=== PATIENT | male | born 1975 ===

== ENCOUNTER 2016-10-27 13:31 | Inpatient (IN) | payer OTHER ==
--- NOTE | 2016-10-27 14:51 | RAD ---
HISTORY: SOB COMPARISON: None available. TECHNIQUE: Chest PA and lateral FINDINGS: Examination limited by habitus and hypoinflation. LUNGS: Mild biapical pleural thickening. No focal consolidation. Probable punctate left upper lobe calcified granulomas. Please note that chest x-ray has limited sensitivity for the detection of pulmonary masses. PLEURA: No significant pleural effusion identified. No definite pneumothorax . CARDIOVASCULAR: The cardiomediastinal silhouette appears within normal limits of size. OSSEOUS STRUCTURES: No acute osseous abnormality identified. VISUALIZED UPPER ABDOMEN: Unremarkable. OTHER FINDINGS: None. IMPRESSION: No acute findings. See above.
[2016-10-27 14:57] LABS: BASO # 0.1 K/uL (0.0-0.2); EOS # 0.2 K/uL (0.0-0.7); EOS % 1.8 % (0.0-4.0); HEMATOCRIT 46.6 % (35.0-51.0); LYMPH # 2.6 K/uL (1.0-4.3); LYMPH % 30.3 % (20.0-40.0); MEAN CELL VOLUME 83.9 fL (80.0-94.0); MEAN CORPUSCULAR HEMOGLOBIN 27.3 pg (27.0-31.0); MEAN CORPUSCULAR HGB CONC 32.6 g/dL (33.0-37.0); MEAN PLATELET VOLUME 8.7 fL (7.2-11.7); MONO # 0.5 K/uL (0.0-0.8); MONO % 5.7 % (0.0-10.0); RED CELL DISTRIBUTION WIDTH 14.4 % (11.5-14.5); WHITE BLOOD COUNT 8.7 K/uL (4.8-10.8)
[2016-10-27 15:10] LABS: ALB/GLOB RATIO 1.2 (1.0-2.1); ALKALINE PHOSPHATASE 108 U/L (38-126); ALT/SGPT 81 U/L (21-72); AST/SGOT 47 U/L (17-59); BILIRUBIN,TOTAL 0.5 mg/dL (0.2-1.3); BLOOD UREA NITROGEN 11 mg/dL (9-20); CALCIUM 9.4 mg/dl (8.6-10.4); CARBON DIOXIDE 24 mmol/L (22-30); CHLORIDE 102 mmol/L (98-107); GFR AFRICAN-AMERICAN > 60; GLUCOSE,RANDOM 85 mg/dL (75-110); POTASSIUM 4.1 mmol/L (3.6-5.2); SODIUM 137 mmol/L (132-148)
[2016-10-27 15:11] LABS: RBC URINE 2 /hpf (0-3); URINE BILIRUBIN NEGATIVE (NEGATIVE); URINE BLOOD NEGATIVE (NEGATIVE); URINE COLOR Yellow (YELLOW); URINE GLUCOSE (UA) NORMAL (Normal); URINE KETONE NEGATIVE (NEGATIVE); URINE LEUKOCYTE ESTERASE TRACE Leu/uL (Negative); URINE PROTEIN NEGATIVE (NEGATIVE); URINE UROBILINOGEN NORMAL mg/dL (0.2-1.0); WBC URINE 15 /hpf (0-5)
--- NOTE | 2016-10-27 15:42 | C.PDOC ---
History Of Present Illness Patient is a 41 y/o male presents to the ED for evaluation of worsening dyspnea on exertion for the past week. Also reports increased leg edema for the last month. Reports weight gain in the last 7 years due to dietary indiscretion. Otherwise, denies any chest pain, palpitations, cough, sputum, nausea, vomiting , weakness, numbness, or any other associated symptoms at this time. Time Seen by Provider: 10/27/16 14:02 Chief Complaint (Nursing): Chest Pain History Per: Patient History/Exam Limitations: no limitations Onset/Duration Of Symptoms: Days (1 week) Current Symptoms Are (Timing): Still Present Severity: None Pain Scale Rating Of: 0 Associated Symptoms: Dyspnea. denies: Nausea, Diaphoresis, Syncope Modifying Factors: None Exacerbating Factors: Exertion Alleviating Factors: None Recent travel outside of the [place]: No Additional History Per: Patient Past Medical History Reviewed: Historical Data, Nursing Documentation, Vital Signs Vital Signs: Last Vital Signs Temp 97.9 F 10/27/16 13:43 Pulse 82 10/27/16 15:48 Resp 18 10/27/16 15:48 BP 148/70 10/27/16 15:58 Pulse Ox 99 10/27/16 15:48 - Medical History PMH: Gall Bladder Disease, Pancreatitis Surgical History: Cholecystectomy Family History: States: Unknown Family Hx - Social History Hx Alcohol Use: No Hx Substance Use: No - Immunization History Hx Tetanus Toxoid Vaccination: Yes Hx Influenza Vaccination: No Hx Pneumococcal Vaccination: No Review Of Systems Except As Marked, All Systems Reviewed And Found Negative. Constitutional: Positive for: Other (snoring, sleep apnea). Negative for: Fever , Chills, Sweats, Weight loss Cardiovascular: Positive for: Edema (bilateral leg). Negative for: Chest Pain, Palpitations, Light Headedness Respiratory: Positive for: SOB with Excertion. Negative for: Cough, Hemoptysis , Pleuritic Pain, Sputum, Wheezing Gastrointestinal: Negative for: Nausea, Vomiting, Abdominal Pain Musculoskeletal: Negative for: Neck Pain, Back Pain Skin: Negative for: Rash, Bruising Neurological: Negative for: Headache, Dizziness Physical Exam - Physical Exam Appears: Non-toxic, No Acute Distress, Other (morbidly obese) Skin: Normal Color, Warm, Dry Head: Atraumatic, Normacephalic Eye(s): bilateral: Normal Inspection, EOMI Oral Mucosa: Moist Throat: No Erythema, Other (small oropharynx) Neck: Normal ROM, Supple Chest: Symmetrical, No Tenderness Cardiovascular: Rhythm Regular, No Murmur Respiratory: Normal Breath Sounds, No Rales, No Rhonchi, No Wheezing Gastrointestinal/Abdominal: Soft, No Tenderness, Other (globus abdomen) Extremity: Normal ROM, No Tenderness, Pedal Edema (pitting edema bilaterally, up to knees), Capillary Refill (<2 sec.), No Deformity Extremity: Bilateral: Atraumatic, Normal ROM Neurological/Psych: Oriented x3, Normal Speech, Normal Cognition, Other (anxious ) ED Course And Treatment - Laboratory Results Result Diagrams: 10/27/16 14:51 10/27/16 14:51 Lab Interpretation: Normal (trop/bnp/d-dimer neg.) ECG: Interpreted By Me ECG Rhythm: Sinus Rhythm ECG Interpretation: Normal Rate From EC O2 Sat by Pulse Oximetry: 97 Pulse Ox Interpretation: Normal - Radiology CXR: Interpreted by Me CXR Interpretation: Yes: No Acute Disease, Other (? mild CHF) Progress Note: yodit alvarez 42 IV Reevaluation Time: 15:42 Reassessment Condition: Improved (mild improvement, minimal urine output) - Physician Consult Information Outcome Of Conversation: 1540: d/w Dr. Alfaro- Hospitalist [employer]- ok to Tele Obs, agrees with diuresis, consider cardiac echo. CPAP overnight for presumed TACHO Medical Decision Making Medical Decision Making: worstening mobid obesity, leg edema, TACHO, now CAMPOS ? related to leg edema or cardiac etiology Despite huge leg edema low susp of DVT/PE with neg d-dimer Disposition Doctor Will See Patient In The: Hospital Counseled Patient/Family Regarding: Studies Performed, Diagnosis - Disposition Disposition: HOSPITALIZED Disposition Time: 15:44 Condition: GOOD - Clinical Impression Clinical Impression: Dyspnea on exertion, Leg edema, Sleep apnea in adult - Scribe Statement The provider has reviewed the documentation as recorded by the Hola Ha All medical record entries made by the Elizabetibsatinder were at my direction and personally dictated by me. I have reviewed the chart and agree that the record accurately reflects my personal performance of the history, physical exam, medical decision making, and the department course for this patient. I have also personally directed, reviewed, and agree with the discharge instructions and disposition.
[2016-10-27 18:53] VITALS: BMI 46.8
[2016-10-27 20:09] VITALS: RESP 20
--- NOTE | 2016-10-27 20:56 | CP.PCM.HP ---
<Josh Jha - Last Filed: 10/27/16 20:41> History of Present Illness - History of Present Illness History of Present Illness: PGY-[address] H&P [address] Martha Alfaro This is a 41 year old male with PMHx pancreatitis and cholelithiasis s/p cholecystectomy who presented to the ED with complaint of dyspnea and left sided chest pain. Patient also complaining of low back pain and bilateral leg swelling. The dyspnea and chest pain started 3 days ago and are experienced when patient is either standing or ambulating. Patient also gets diaphoretic and experiences facial flushing. Symptoms improve with rest. He can only walk for half a block at a time due to severe SOB and chest pain. Patient decided to come for evaluation after he could no longer tolerate his symptoms. Patient intermittently wakes up at night due to difficulty breathing, but he cannot quantify how many times this happens to him per week. Patient has started experiencing intermittent dry cough since last evening. Patient actually did not notice leg swelling until it was pointed out to him by ED staff. PMHx: pancreatitis in 2008, cholilithiasis PSHx: cholecystectomy, L foot heel surgery Allergy: anaphylasis to unknown allergen (was not in a hospital when he got his reaction) Social Hx: former smoker- 3-6 cigarettes per week, quit 12 years ago. Former social drinker, quit when diagnosed with pancreatitis. Denies drug use. Family Hx: mother- stroke Medications: Epipen, patient keeps on hand because he does not know what caused his reaction. PMD: none Present on Admission - Present on Admission Any Indicators Present on Admission: No Review of Systems - Constitutional Constitutional: absent: Chills, Fever, Headache, Weakness - EENT Eyes: absent: Change in Vision Ears: absent: Decreased Hearing Nose/Mouth/Throat: absent: Nasal Congestion - Cardiovascular Cardiovascular: Chest Pain with Activity, Dyspnea on Exertion. absent: Chest Pain at Rest - Respiratory Respiratory: Cough (intermittent dry cough), Dyspnea on Exertion. absent: Wheezing - Gastrointestinal Gastrointestinal: absent: Abdominal Pain, Constipation, Diarrhea, Nausea, Vomiting - Musculoskeletal Musculoskeletal: Back Pain - Integumentary Integumentary: absent: Rash - Neurological Neurological: absent: Dizziness, Numbness, Headaches, Tingling, Weakness Past Patient History - Past Social History Smoking Status: Never Smoked - GASTROINTESTINAL Hx Gall Bladder Disease: Yes Hx Pancreatitis: Yes - PSYCHIATRIC Hx Substance Use: No - SURGICAL HISTORY Hx Cholecystectomy: Yes - ANESTHESIA Hx Anesthesia: Yes Hx Anesthesia Reactions: No Meds Allergies/Adverse Reactions: Allergies Allergy/AdvReac Type Severity Reaction Status Date / Time UNKNOW ALLERGEN Allergy Severe ANAPHYLAXIS Uncoded 10/27/16 13:47 Physical Exam - Constitutional Appears: No Acute Distress - Head Exam Head Exam: ATRAUMATIC, NORMAL INSPECTION, NORMOCEPHALIC - Eye Exam Eye Exam: EOMI, PERRL - ENT Exam ENT Exam: Mucous Membranes Moist - Respiratory Exam Respiratory Exam: Decreased Breath Sounds (secondary to body habitus), Clear to Auscultation Bilateral. absent: Rales, Rhonchi, Wheezes - Cardiovascular Exam Cardiovascular Exam: REGULAR RHYTHM, +S1, +S2 - GI/Abdominal Exam GI & Abdominal Exam: Hypoactive Bowel Sounds, Soft. absent: Tenderness - Extremities Exam Extremities exam: Positive for: pedal edema (very trace edema likely baseline due to body habitus), pedal pulses present. Negative for: tenderness - Neurological Exam Neurological exam: Alert, CN II-XII Intact, Oriented x3 - Skin Skin Exam: Dry, Intact, Normal Color, Warm Results - Vital Signs Recent Vital Signs: Last Vital Signs Temp 98.2 F 10/27/16 20:08 Pulse 87 10/27/16 20:08 Resp 20 10/27/16 20:08 BP 142/82 10/27/16 20:08 Pulse Ox 95 10/27/16 20:08 - Labs Result Diagrams: 10/27/16 14:51 10/27/16 14:51 Assessment & Plan - Assessment and Plan (Free Text) Plan: Chest Pain First troponin negative. F/u NOVA x2 ASA [address] Hernandez (cardiology) consulted. Help appreciated. F/u Echo Lipid Panel, Hemoglobin A1C, TSH, free T4 Dyspnea Patient resting comfortably on O2 via NC as needed Prophylactic Measure Heparin 5000 Units SC Q8 Heart Healthy Diet AM Labs Case DW Dr. Dominic Jha - Date & Time Date: 10/27/16 Time: 17:00 <Johny Alfaro - Last Filed: 10/28/16 10:14> Results - Vital Signs Recent Vital Signs: Last Vital Signs Temp 97.2 F L 10/28/16 07:11 Pulse 77 10/28/16 08:11 Resp 20 10/28/16 07:11 BP 118/79 10/28/16 07:11 Pulse Ox 96 10/28/16 07:11 - Labs Result Diagrams: 10/28/16 06:30 10/28/16 06:30 Attending/Attestation - Attestation I have personally seen and examined this patient.: Yes I have fully participated in the care of the patient.: Yes I have reviewed all pertinent clinical information: Yes Notes (Text): 10/28/16 10:13 Patient was seen and examined at bedside with the resident Admit the patient for chest pain on exertion and we will request cardiology evaluation I discussed the plan of care with the resident and agree with the assessment and plan documented.
[2016-10-28 06:39] LABS: BASO # 0.1 K/uL (0.0-0.2); BASO % 0.9 % (0.0-2.0); EOS # 0.2 K/uL (0.0-0.7); EOS % 2.7 % (0.0-4.0); HEMATOCRIT 42.6 % (35.0-51.0); LYMPH # 2.3 K/uL (1.0-4.3); LYMPH % 30.3 % (20.0-40.0); MEAN CELL VOLUME 83.5 fL (80.0-94.0); MEAN CORPUSCULAR HEMOGLOBIN 27.9 pg (27.0-31.0); MEAN CORPUSCULAR HGB CONC 33.5 g/dL (33.0-37.0); MEAN PLATELET VOLUME 8.3 fL (7.2-11.7); MONO # 0.4 K/uL (0.0-0.8); MONO % 5.7 % (0.0-10.0); RED CELL DISTRIBUTION WIDTH 14.5 % (11.5-14.5); WHITE BLOOD COUNT 7.7 K/uL (4.8-10.8)
[2016-10-28 06:52] LABS: ALB/GLOB RATIO 1.2 (1.0-2.1); ALKALINE PHOSPHATASE 95 U/L (38-126); ALT/SGPT 74 U/L (21-72); AST/SGOT 46 U/L (17-59); BILIRUBIN,TOTAL 0.5 mg/dL (0.2-1.3); BLOOD UREA NITROGEN 13 mg/dL (9-20); CALCIUM 8.9 mg/dl (8.6-10.4); CARBON DIOXIDE 27 mmol/L (22-30); CHLORIDE 101 mmol/L (98-107); CHOLESTEROL 133 mg/dL (0-199); GFR AFRICAN-AMERICAN > 60; GLUCOSE,RANDOM 92 mg/dL (75-110); POTASSIUM 3.6 mmol/L (3.6-5.2); SODIUM 138 mmol/L (132-148); TOTAL PROTEIN 6.3 g/dL (6.3-8.3)
[2016-10-28 07:23] LABS: THYROID STIMULATING HORMONE 4.09 mIU/L (0.46-4.68)
[2016-10-28 08:12] VITALS: BP 118/79; TEMP 97.2; O2SAT 96
[2016-10-28 08:18] VITALS: PULSE 77
--- NOTE | 2016-10-28 12:35 | CP.PCM.CON ---
History of Present Illness - History of Present Illness History of Present Illness: consultation for evaluation of chest pain HPI :41-year-old male with past medical history significant for pancreatitis status post cholecystectomy at the age of 26 morbidly obese male presenting with an episode of chest pain described as substernal pressure-like sensation accompanied with diaphoresis and a sensation of numbness doing radiating down the left arm. Symptoms lasted for a few minutes which brought him scared and brought him to the ED. At baseline he denies having any ischemic symptoms fairly active. Also complains of mild lower extremity swelling. Echocardiogram done on this admission showed normal ejection fraction and normal diastolic function EKG showed normal sinus with no acute ST- T wave changes he has already been ruled out for acute coronary syndrome with serial enzymes 3. Review of Systems - Review of Systems All systems: reviewed and no additional remarkable complaints except - Constitutional Constitutional: As Per HPI - EENT Eyes: As Per HPI Ears: As Per HPI Nose/Mouth/Throat: As Per HPI - Cardiovascular Cardiovascular: As Per HPI, Chest Pain - Respiratory Respiratory: As Per HPI - Gastrointestinal Gastrointestinal: As Per HPI - Genitourinary Genitourinary: As Per HPI - Reproductive: Male Reproductive:Male: As Per HPI - Musculoskeletal Musculoskeletal: As Per HPI - Integumentary Integumentary: As Per HPI - Neurological Neurological: As Per HPI - Psychiatric Psychiatric: As Per HPI - Endocrine Endocrine: As Per HPI - Hematologic/Lymphatic Hematologic: As Per HPI Past Patient History - Past Medical History & Family History Past Medical History?: No - Past Social History Smoking Status: Never Smoked - MUSCULOSKELETAL/RHEUMATOLOGICAL Hx Falls: No - GASTROINTESTINAL Hx Gall Bladder Disease: Yes Hx Pancreatitis: Yes - PSYCHIATRIC Hx Substance Use: No - SURGICAL HISTORY Hx Cholecystectomy: Yes - ANESTHESIA Hx Anesthesia: Yes Hx Anesthesia Reactions: No Meds Allergies/Adverse Reactions: Allergies Allergy/AdvReac Type Severity Reaction Status Date / Time UNKNOW ALLERGEN Allergy Severe ANAPHYLAXIS Uncoded 10/27/16 13:47 - Medications Medications: Current Medications Aspirin (Aspirin) 325 mg PO DAILY [facility] Last Admin: 10/28/16 10:24 Dose: 325 mg Heparin Sodium (Porcine) (Heparin) 5,000 units SC Q8 [facility] Last Admin: 10/28/16 05:10 Dose: 5,000 units Physical Exam - Constitutional Appears: Well - Head Exam Head Exam: ATRAUMATIC, NORMAL INSPECTION, NORMOCEPHALIC - Eye Exam Eye Exam: EOMI, Normal appearance, PERRL Pupil Exam: NORMAL ACCOMODATION, PERRL - ENT Exam ENT Exam: Mucous Membranes Moist, Normal Exam - Neck Exam Neck exam: Positive for: Normal Inspection - Respiratory Exam Respiratory Exam: Clear to Auscultation Bilateral, NORMAL BREATHING PATTERN - Cardiovascular Exam Cardiovascular Exam: REGULAR RHYTHM, RRR, +S1, +S2 - GI/Abdominal Exam GI & Abdominal Exam: Normal Bowel Sounds, Soft. absent: Tenderness - Extremities Exam Extremities exam: Positive for: normal inspection - Back Exam Back exam: NORMAL INSPECTION - Neurological Exam Neurological exam: Alert, CN II-XII Intact, Normal Gait, Oriented x3, Reflexes Normal - Psychiatric Exam Psychiatric exam: Normal Affect, Normal Mood - Skin Skin Exam: Dry, Intact, Normal Color, Warm Results - Vital Signs Recent Vital Signs: Last Vital Signs Temp 97.2 F L 10/28/16 07:11 Pulse 77 10/28/16 08:11 Resp 20 10/28/16 07:11 BP 118/79 10/28/16 07:11 Pulse Ox 96 10/28/16 07:11 - Labs Result Diagrams: 10/28/16 06:30 10/28/16 06:30 Assessment & Plan (1) Chest pain Assessment and Plan: symptoms somewhat typical Echo shows normal LVEF EKG and TnI x 3 -ve keep pt on asa and bb Status: Acute (2) Dyspnea on exertion Assessment and Plan: etiology 2' to obesity related restrictive lung disease will need PFT's and sleep study as outpt Status: Acute (3) Leg edema Assessment and Plan: 2' to venous insufficiency and elevated RAAS compression stockings low salt diet - dietitian consult Status: Acute (4) Obesity Assessment and Plan: morbid obesity Hgb A1C consider metformin / endocrinology consult Status: Acute
--- NOTE | 2016-10-28 16:00 | CP.PCM.DIS ---
<Johny Alfaro - Last Filed: 10/28/16 17:27> Provider - Provider Date of Admission: 10/28/16 08:59 Attending physician: Johny Alfaro MD Hospital Course - Lab Results Lab Results: Most Recent Lab Values WBC 7.7 K/uL (4.8-10.8) 10/28/16 06:30 RBC 5.10 Mil/uL (4.40-5.90) 10/28/16 06:30 Hgb 14.2 g/dL (12.0-18.0) 10/28/16 06:30 Hct 42.6 % (35.0-51.0) 10/28/16 06:30 MCV 83.5 fL (80.0-94.0) 10/28/16 06:30 MCH 27.9 pg (27.0-31.0) 10/28/16 06:30 MCHC 33.5 g/dL (33.0-37.0) 10/28/16 06:30 RDW 14.5 % (11.5-14.5) 10/28/16 06:30 Plt Count 251 K/uL (130-400) 10/28/16 06:30 MPV 8.3 fL (7.2-11.7) 10/28/16 06:30 Neut % (Auto) 60.4 % (50.0-75.0) 10/28/16 06:30 Lymph % (Auto) 30.3 % (20.0-40.0) 10/28/16 06:30 [place] % (Auto) 5.7 % (0.0-10.0) 10/28/16 06:30 Eos % (Auto) 2.7 % (0.0-4.0) 10/28/16 06:30 Baso % (Auto) 0.9 % (0.0-2.0) 10/28/16 06:30 Neut # 4.6 K/uL (1.8-7.0) 10/28/16 06:30 Lymph # 2.3 K/uL (1.0-4.3) 10/28/16 06:30 [place] # 0.4 K/uL (0.0-0.8) 10/28/16 06:30 Eos # 0.2 K/uL (0.0-0.7) 10/28/16 06:30 Baso # 0.1 K/uL (0.0-0.2) 10/28/16 06:30 APTT 34 SECONDS (21-34) 10/27/16 21:15 D-Dimer, Quantitative < 200 ng/mlDDU (0-243) 10/27/16 14:51 Sodium 138 mmol/L (132-148) 10/28/16 06:30 Potassium 3.6 mmol/L (3.6-5.2) 10/28/16 06:30 Chloride 101 mmol/L (98-107) 10/28/16 06:30 Carbon Dioxide 27 mmol/L (22-30) 10/28/16 06:30 Anion Gap 14 (10-20) 10/28/16 06:30 BUN 13 mg/dL (9-20) 10/28/16 06:30 Creatinine 0.9 MG/DL (0.8-1.5) 10/28/16 06:30 Est GFR ( Amer) > 60 10/28/16 06:30 Est GFR (Non-Af Amer) > 60 10/28/16 06:30 Random Glucose 92 mg/dL (75-110) 10/28/16 06:30 Calcium 8.9 mg/dl (8.6-10.4) 10/28/16 06:30 Total Bilirubin 0.5 mg/dL (0.2-1.3) 10/28/16 06:30 AST 46 U/L (17-59) 10/28/16 06:30 ALT 74 U/L (21-72) H 10/28/16 06:30 Alkaline Phosphatase 95 U/L (38-126) 10/28/16 06:30 Total Creatine Kinase 38 U/L (55-170) L 10/28/16 02:09 CK-MB (Mass) < 0.22 ng/mL (0.0-3.38) 10/28/16 02:09 Troponin I < 0.0120 ng/mL (0.00-0.120) 10/27/16 14:51 Troponin I, Quant < 0.0120 ng/mL (0.00-0.120) 10/28/16 02:09 NT-Pro-B Natriuret Pep 49.9 pg/mL (0-450) 10/27/16 14:51 Total Protein 6.3 g/dL (6.3-8.3) 10/28/16 06:30 Albumin 3.4 g/dL (3.5-5.0) L 10/28/16 06:30 Globulin 2.9 gm/dL (2.2-3.9) 10/28/16 06:30 Albumin/Globulin Ratio 1.2 (1.0-2.1) 10/28/16 06:30 Triglycerides 227 mg/dL (0-149) H 10/28/16 06:30 Cholesterol 133 mg/dL (0-199) 10/28/16 06:30 LDL Cholesterol Direct 69 mg/dL (0-129) 10/28/16 06:30 HDL Cholesterol 30 mg/dL (30-70) 10/28/16 06:30 Free T4 0.88 ng/dL (0.78-2.19) 10/28/16 06:30 TSH 3rd Generation 4.09 mIU/L (0.46-4.68) 10/28/16 06:30 Urine Color Yellow (YELLOW) 10/27/16 14:56 Urine Clarity Clear (Clear) 10/27/16 14:56 Urine pH 5.0 (5.0-8.0) 10/27/16 14:56 Ur Specific [place] 1.019 (1.003-1.030) 10/27/16 14:56 Urine Protein Negative mg/dL (NEGATIVE) 10/27/16 14:56 Urine Glucose (UA) Normal mg/dL (Normal) 10/27/16 14:56 Urine Ketones Negative mg/dL (NEGATIVE) 10/27/16 14:56 Urine Blood Negative (NEGATIVE) 10/27/16 14:56 Urine Nitrate Negative (NEGATIVE) 10/27/16 14:56 Urine Bilirubin Negative (NEGATIVE) 10/27/16 14:56 Urine Urobilinogen Normal mg/dL (0.2-1.0) 10/27/16 14:56 Ur Leukocyte Esterase Trace Clif/uL (Negative) 10/27/16 14:56 Urine WBC (Auto) 15 /hpf (0-5) H 10/27/16 14:56 Urine RBC (Auto) 2 /hpf (0-3) 10/27/16 14:56 Ur Squamous Epith Cells 2 /hpf (0-5) 10/27/16 14:56 Discharge Plan - Discharge Medications Prescriptions: Aspirin [Ecotrin] 81 mg PO DAILY #30 tablet. Metoprolol Succinate [Toprol XL] 25 mg PO DAILY #30 tab - Follow Up Plan Condition: GOOD Disposition: HOME/ ROUTINE Instructions: Metoprolol (By mouth), Aspirin (By mouth), Chest Pain (DC), Dyspnea (GEN), Edema (DC) Additional Instructions: Patient to be discharged home per Dr. Alfaro and Dr. Hernandze. Patient will need to follow up with his own PMD or [facility] for post hospital follow up and for primary care. He will need to return to the ED if symptoms return or worsen. Patient will take Toprol 25mg daily and Aspirin 81mg daily. He is given a script for a 30 day supply for each medication without refill. Referrals: at [facility] [Outside] Jose Hernandez MD [Staff Provider] - Attending/Attestation - Attestation I have personally seen and examined this patient.: Yes I have fully participated in the care of the patient.: Yes I have reviewed all pertinent clinical information, including history, physical exam and plan: Yes Notes (Text): 10/28/16 17:28 Patient was seen and examined at bedside with the resident Patient denies any chest pain or shortness of breath at this time and cardio workup for completed and the patient does not have acute coronary syndrome Cardiology consultation appreciated Patient clear for discharge by cardiology and follow-up with the proofsheet corrector as outpatient I agree with the discharge note by the resident. <Bogdan Paniagua - Last Filed: 10/28/16 22:16> Provider - Provider Date of Admission: 10/28/16 08:59 Attending physician: Johny Alfaro MD Consults: Dr. Hernandez Time Spent in preparation of Discharge (in minutes): 45 Hospital Course - Lab Results Lab Results: Most Recent Lab Values WBC 7.7 K/uL (4.8-10.8) 10/28/16 06:30 RBC 5.10 Mil/uL (4.40-5.90) 10/28/16 06:30 Hgb 14.2 g/dL (12.0-18.0) 10/28/16 06:30 Hct 42.6 % (35.0-51.0) 10/28/16 06:30 MCV 83.5 fL (80.0-94.0) 10/28/16 06:30 MCH 27.9 pg (27.0-31.0) 10/28/16 06:30 MCHC 33.5 g/dL (33.0-37.0) 10/28/16 06:30 RDW 14.5 % (11.5-14.5) 10/28/16 06:30 Plt Count 251 K/uL (130-400) 10/28/16 06:30 MPV 8.3 fL (7.2-11.7) 10/28/16 06:30 Neut % (Auto) 60.4 % (50.0-75.0) 10/28/16 06:30 Lymph % (Auto) 30.3 % (20.0-40.0) 10/28/16 06:30 [place] % (Auto) 5.7 % (0.0-10.0) 10/28/16 06:30 Eos % (Auto) 2.7 % (0.0-4.0) 10/28/16 06:30 Baso % (Auto) 0.9 % (0.0-2.0) 10/28/16 06:30 Neut # 4.6 K/uL (1.8-7.0) 10/28/16 06:30 Lymph # 2.3 K/uL (1.0-4.3) 10/28/16 06:30 [place] # 0.4 K/uL (0.0-0.8) 10/28/16 06:30 Eos # 0.2 K/uL (0.0-0.7) 10/28/16 06:30 Baso # 0.1 K/uL (0.0-0.2) 10/28/16 06:30 APTT 34 SECONDS (21-34) 10/27/16 21:15 D-Dimer, Quantitative < 200 ng/mlDDU (0-243) 10/27/16 14:51 Sodium 138 mmol/L (132-148) 10/28/16 06:30 Potassium 3.6 mmol/L (3.6-5.2) 10/28/16 06:30 Chloride 101 mmol/L (98-107) 10/28/16 06:30 Carbon Dioxide 27 mmol/L (22-30) 10/28/16 06:30 Anion Gap 14 (10-20) 10/28/16 06:30 BUN 13 mg/dL (9-20) 10/28/16 06:30 Creatinine 0.9 MG/DL (0.8-1.5) 10/28/16 06:30 Est GFR ( Amer) > 60 10/28/16 06:30 Est GFR (Non-Af Amer) > 60 10/28/16 06:30 Random Glucose 92 mg/dL (75-110) 10/28/16 06:30 Calcium 8.9 mg/dl (8.6-10.4) 10/28/16 06:30 Total Bilirubin 0.5 mg/dL (0.2-1.3) 10/28/16 06:30 AST 46 U/L (17-59) 10/28/16 06:30 ALT 74 U/L (21-72) H 10/28/16 06:30 Alkaline Phosphatase 95 U/L (38-126) 10/28/16 06:30 Total Creatine Kinase 38 U/L (55-170) L 10/28/16 02:09 CK-MB (Mass) < 0.22 ng/mL (0.0-3.38) 10/28/16 02:09 Troponin I < 0.0120 ng/mL (0.00-0.120) 10/27/16 14:51 Troponin I, Quant < 0.0120 ng/mL (0.00-0.120) 10/28/16 02:09 NT-Pro-B Natriuret Pep 49.9 pg/mL (0-450) 10/27/16 14:51 Total Protein 6.3 g/dL (6.3-8.3) 10/28/16 06:30 Albumin 3.4 g/dL (3.5-5.0) L 10/28/16 06:30 Globulin 2.9 gm/dL (2.2-3.9) 10/28/16 06:30 Albumin/Globulin Ratio 1.2 (1.0-2.1) 10/28/16 06:30 Triglycerides 227 mg/dL (0-149) H 10/28/16 06:30 Cholesterol 133 mg/dL (0-199) 10/28/16 06:30 LDL Cholesterol Direct 69 mg/dL (0-129) 10/28/16 06:30 HDL Cholesterol 30 mg/dL (30-70) 10/28/16 06:30 Free T4 0.88 ng/dL (0.78-2.19) 10/28/16 06:30 TSH 3rd Generation 4.09 mIU/L (0.46-4.68) 10/28/16 06:30 Urine Color Yellow (YELLOW) 10/27/16 14:56 Urine Clarity Clear (Clear) 10/27/16 14:56 Urine pH 5.0 (5.0-8.0) 10/27/16 14:56 Ur Specific [place] 1.019 (1.003-1.030) 10/27/16 14:56 Urine Protein Negative mg/dL (NEGATIVE) 10/27/16 14:56 Urine Glucose (UA) Normal mg/dL (Normal) 10/27/16 14:56 Urine Ketones Negative mg/dL (NEGATIVE) 10/27/16 14:56 Urine Blood Negative (NEGATIVE) 10/27/16 14:56 Urine Nitrate Negative (NEGATIVE) 10/27/16 14:56 Urine Bilirubin Negative (NEGATIVE) 10/27/16 14:56 Urine Urobilinogen Normal mg/dL (0.2-1.0) 10/27/16 14:56 Ur Leukocyte Esterase Trace Clif/uL (Negative) 10/27/16 14:56 Urine WBC (Auto) 15 /hpf (0-5) H 10/27/16 14:56 Urine RBC (Auto) 2 /hpf (0-3) 10/27/16 14:56 Ur Squamous Epith Cells 2 /hpf (0-5) 10/27/16 14:56 - Hospital Course Hospital Course: PGY-1 H&P for Dr. Martha Alfaro This is a 41 year old male with PMHx pancreatitis and cholelithiasis s/p cholecystectomy who presented to the ED with complaint of dyspnea and left sided chest pain. Patient also complaining of low back pain and bilateral leg swelling. The dyspnea and chest pain started 3 days ago and are experienced when patient is either standing or ambulating. Patient also gets diaphoretic and experiences facial flushing. Symptoms improve with rest. He can only walk for half a block at a time due to severe SOB and chest pain. Patient decided to come for evaluation after he could no longer tolerate his symptoms. Patient intermittently wakes up at night due to difficulty breathing, but he cannot quantify how many times this happens to him per week. Patient has started experiencing intermittent dry cough since last evening. Patient actually did not notice leg swelling until it was pointed out to him by ED staff. Hospital course: Patient admitted to telemetry for chest pain, lower leg swelling, and shortness of breath. He had serial cardiac enzymes there were all negative. An echo, EKG , and CXR were all preformed. A cardiology consult was ordered as well. Patient was discharged home to follow up with me in the clinic for a outpatient stress test. Discharge Plan: Patient to be discharged home per Dr. Alfaro and Dr. Hernandez. Patient will need to follow up with his own PMD or [facility] for post hospital follow up and for primary care. He will need to return to the ED if symptoms return or worsen. Patient will take Toprol 25mg daily and Aspirin 81mg daily. He is given a script for a 30 day supply for each medication without refill. Discharge Diagnosis: Chest Pain Obesity hyperventilation syndrome lower extremity swelling - Date & Time of H&P Date of H&P: 10/28/16 Time of H&P: 10:00 Discharge Exam - Head Exam Head Exam: ATRAUMATIC, NORMAL INSPECTION, NORMOCEPHALIC - Eye Exam Pupil Exam: NORMAL ACCOMODATION - Respiratory Exam Respiratory Exam: Clear to PA & Lateral. absent: Rales, Rhonchi - Cardiovascular Exam Cardiovascular Exam: REGULAR RHYTHM, RRR, +S1, +S2. absent: Gallop, Rubs - GI/Abdominal Exam GI & Abdominal Exam: Normal Bowel Sounds, Soft. absent: Guarding, Rebound, Tenderness - Extremities Exam Extremities exam: pedal edema - Neurological Exam Neurological exam: Alert - Skin Skin Exam: Normal Color, Pallor
--- NOTE | 2016-10-28 20:11 | CARD ---
APPROVED REPORT EXAM: Two-dimensional and M-mode echocardiogram with Doppler and color Doppler. Other Information Quality : Technically LimitedRhythm : NSR INDICATION Dyspnea Chest Pain M-Mode DIMENSIONS RVDd1.22 (2.1-3.2cm)Left Atrium (MM)4.18 (2.5-4.0cm) IVSd1.00 (0.7-1.1cm)Aortic Root2.58 (2.2-3.7cm) LVDd5.13 (4.0-5.6cm)Aortic Cusp Exc.1.05 (1.5-2.0cm) PWd1.11 (0.7-1.1cm)FS (%) 29 % LVDs3.65 (2.0-3.8cm)LVEF (%)55 (>50%) Mitral Valve MV E Phqayikr94.0cm/sMV A Gdnzsfcm32.4cm/sE/A ratio1.5 TDI E/Lateral E'0.0E/Medial E'0.0 Tricuspid Valve TR Peak [id number]/sTR Peak Gr.30hsUcPSQJ31veWb LEFT VENTRICLE The left ventricle is normal size. There is normal left ventricular wall thickness. The left ventricular function is normal. The left ventricular ejection fraction is within the normal range. About 65% No regional wall motion abnormalities noted. The left ventricular diastolic function is normal. No left ventricle thrombus noted on this study. There is no ventricular septal defect visualized. There is no left ventricular aneurysm. There is no mass noted in the left ventricle. RIGHT VENTRICLE The right ventricle is normal size. There is normal right ventricular wall thickness. The right ventricular systolic function is normal. ATRIA The left atrium size is normal. The right atrium size is normal. The interatrial septum is intact with no evidence for an atrial septal defect. AORTIC VALVE The aortic valve is normal in structure and function. No aortic regurgitation is present. There is no aortic valvular stenosis. There is no aortic valvular vegetation. MITRAL VALVE The mitral valve is normal in structure and function. There is no evidence of mitral valve prolapse. There is no mitral valve stenosis. There is no mitral valve regurgitation noted. TRICUSPID VALVE The tricuspid valve is normal in structure and function. There is mild tricuspid valve regurgitation noted. There is no tricuspid valve prolapse or vegetation. There is no tricuspid valve stenosis. PULMONIC VALVE The pulmonary valve is normal in structure and function. There is no pulmonic valvular regurgitation. There is no pulmonic valvular stenosis. GREAT VESSELS The aortic root is normal in size. The ascending aorta is normal in size. The pulmonary artery is normal. The IVC is normal in size and collapses >50% with inspiration. PERICARDIAL EFFUSION The pericardium appears normal. There is no pleural effusion. <Conclusion> Normal LV EF, sub-optimal study. Mild tricuspid regurgitation.
--- NOTE | 2016-10-30 23:56 | CARD ---
APPROVED REPORT EKG Measurement Heart [id number] <Conclusion> Normal sinus rhythm Normal ECG
--- NOTE | 2016-10-31 12:08 | VASCLAB ---
PROCEDURE: Lower Extremity Venous Duplex Exam. HISTORY: bilateral swelling rule out dvt PRIORS: None. TECHNIQUE: Bilateral common femoral, femoral, popliteal and posterior tibial, peroneal and great saphenous veins were evaluated. Flow was assessed with color Doppler, compressibility, assessment of phasic flow and augmentation response. Report prepared by Yosi Steward, NAZIA, RVT FINDINGS: RIGHT: 1. Common Femoral Vein: 1.1. Compressibility - Fully compressible: Thrombus - None : Flow - Phasic: Augmentation -Normal: Reflux - None. 2. Femoral Vein: 2.1. Compressibility - Fully compressible: Thrombus - None : Flow - Phasic: Augmentation -Normal: Reflux - None. 3. Popliteal Vein: 3.1. Compressibility - Fully compressible: Thrombus - None : Flow - Phasic: Augmentation -Normal: Reflux - None. 4. Posterior Tibial Vein: 4.1. Compressibility - Fully compressible: Thrombus - None: Flow - Phasic: Augmentation -Normal: Reflux - None. 5. Peroneal Vein: 5.1. Compressibility - Fully compressible: Thrombus - None: Flow - Phasic: Augmentation -Normal: Reflux - None. 6. Great Saphenous Vein: 6.1. Compressibility - Fully compressible: Thrombus - None: Flow - Phasic: Augmentation - Normal: Reflux - None. LEFT: 1. Common Femoral Vein: 1.1. Compressibility - Fully compressible: Thrombus - None: Flow - Phasic: Augmentation -Normal: Reflux - None. 2. Femoral Vein: 2.1. Compressibility - Fully compressible: Thrombus - None: Flow - Phasic: Augmentation -Normal: Reflux - None. 3. Popliteal Vein: 3.1. Compressibility - Fully compressible: Thrombus - None : Flow - Phasic: Augmentation -Normal: Reflux - None. 4. Posterior Tibial Vein: 4.1. Compressibility - Fully compressible: Thrombus - None: Flow - Phasic: Augmentation -Normal: Reflux - None. 5. Peroneal Vein: 5.1. Compressibility - Fully compressible: Thrombus - None: Flow - Phasic: Augmentation -Normal: Reflux - None. 6. Great Saphenous Vein: 6.1. Compressibility - Fully compressible: Thrombus - None: Flow - Phasic: Augmentation - Normal: Reflux - None. OTHER FINDINGS: Right: None significant. Left: None significant. IMPRESSION: Right: No evidence of deep or superficial vein thrombosis of the right lower extremity. Normal valve function noted of the right side. Left: No evidence of deep or superficial vein thrombosis of the left lower extremity. Normal valve function noted of the left side.
== END 2016-10-28 15:45 | disposition home or self-care (01) | DRG 143 ==
LOC: C.ER 13:31 → C.9E 15:41 → C.6T 19:10 → OBSVTOIN 10-28 08:59 → MERGE 10-28 08:59
PROVIDERS: ADMIT Internal Medicine; ATTEND Internal Medicine
DX: R07.89 Other chest pain (principal); E66.2 Morbid (severe) obesity with alveolar hypoventilation; J98.4 Other disorders of lung; I87.2 Venous insufficiency (chronic) (peripheral); G47.30 Sleep apnea, unspecified; Z87.891 Personal history of nicotine dependence; Z90.49 Acquired absence of other specified parts of digestive tract; Z68.42 Body mass index [BMI] 45.0-49.9, adult

== ENCOUNTER 2016-12-14 13:23 | Emergency (ER) | payer OTHER ==
[2016-12-14 13:30] VITALS: RESP 18; BMI 46.7
[2016-12-14] MEDS ORDERED: Sodium Chloride 0.9% 500 ML IV ONE (14:19)
[2016-12-14] MEDS ORDERED: Sodium Chloride 0.9% 1,000 ML ONE (14:32)
--- NOTE | 2016-12-14 14:39 | RAD ---
HISTORY: chest pain COMPARISON: Chest x-ray performed 10/27/16 TECHNIQUE: Chest PA and lateral FINDINGS: Examination limited by habitus and hypoinflation. LUNGS: Biapical pleural thickening. No focal consolidation. Please note that chest x-ray has limited sensitivity for the detection of pulmonary masses. PLEURA: No significant pleural effusion identified. No definite pneumothorax . CARDIOVASCULAR: Heart size appears within normal limits. OSSEOUS STRUCTURES: Degenerative changes of the spine. VISUALIZED UPPER ABDOMEN: Unremarkable. OTHER FINDINGS: None. IMPRESSION: No focal consolidation, significant pleural effusion, or definite pneumothorax identified.
[2016-12-14 14:40] LABS: BASO # 0.1 K/uL (0.0-0.2); EOS # 0.2 K/uL (0.0-0.7); EOS % 2.2 % (0.0-4.0); HEMATOCRIT 45.7 % (35.0-51.0); LYMPH # 2.7 K/uL (1.0-4.3); MEAN CELL VOLUME 84.2 fL (80.0-94.0); MEAN CORPUSCULAR HGB CONC 33.3 g/dL (33.0-37.0); MEAN PLATELET VOLUME 8.6 fL (7.2-11.7); MONO # 0.7 K/uL (0.0-0.8); MONO % 6.7 % (0.0-10.0); RED CELL DISTRIBUTION WIDTH 14.7 % (11.5-14.5); WHITE BLOOD COUNT 10.2 K/uL (4.8-10.8)
[2016-12-14 14:48] LABS: CHLORIDE 101 mmol/L (98-107); PARTIAL THROMBOPLASTIN TIME 35 SECONDS (21-34); SODIUM 137 mmol/L (132-148)
[2016-12-14 14:49] LABS: POTASSIUM 4.2 mmol/L (3.6-5.2)
[2016-12-14 14:51] LABS: ALKALINE PHOSPHATASE 118 U/L (38-126); ALT/SGPT 65 U/L (21-72); AST/SGOT 33 U/L (17-59); BILIRUBIN,TOTAL 0.4 mg/dL (0.2-1.3); BLOOD UREA NITROGEN 16 mg/dL (9-20); CARBON DIOXIDE 24 mmol/L (22-30); GFR AFRICAN-AMERICAN > 60; GLUCOSE,RANDOM 81 mg/dL (75-110); TOTAL PROTEIN 8.4 g/dL (6.3-8.3)
[2016-12-14 14:52] LABS: CALCIUM 9.7 mg/dl (8.6-10.4)
[2016-12-14 15:06] LABS: RBC URINE 1 /hpf (0-3); URINE BILIRUBIN NEGATIVE (NEGATIVE); URINE BLOOD NEGATIVE (NEGATIVE); URINE COLOR Yellow (YELLOW); URINE GLUCOSE (UA) NORMAL (Normal); URINE KETONE NEGATIVE (NEGATIVE); URINE LEUKOCYTE ESTERASE NEG Leu/uL (Negative); URINE PROTEIN NEGATIVE (NEGATIVE); URINE UROBILINOGEN NORMAL mg/dL (0.2-1.0); WBC URINE 1 /hpf (0-5)
--- NOTE | 2016-12-14 15:11 | C.PDOC ---
History Of Present Illness 41 yo morbidly obese male presenting for evaluation of Left sided chest pain radiating to Left shoulder gradually developed for past 2-3 days. Pt describes as "shooting and sharp at time", substernal accompanied with a sensation of numbness doing radiating down the left arm. Pt admits, had similar sx in past when was seen here in ED on 10/27/16. Otherwise, pt denies fever, chills, headache, dizziness, neck pain, SOB, dyspnea, wheezing, cough, palpitation, diaphoresis, abd. pain, N/V/D, UTi sx. At the time of evaluation, appears in pain. Records review from visit on 10/27/16 , when pt was admitten iker layton CP, had ECHO : normal LV EF, mild tricuspid regurgitation. Time Seen by Provider: 12/14/16 13:58 Chief Complaint (Nursing): Chest Pain Past Medical History Vital Signs: Last Vital Signs Temp 97.9 F 12/14/16 16:04 Pulse 83 12/14/16 16:04 Resp 18 12/14/16 16:04 BP 124/68 12/14/16 16:04 Pulse Ox 100 12/14/16 16:04 - Medical History PMH: Gall Bladder Disease, HTN, Pancreatitis Surgical History: Cholecystectomy Family History: States: Unknown Family Hx - Social History Hx Alcohol Use: No Hx Substance Use: No - Immunization History Hx Tetanus Toxoid Vaccination: Yes Hx Influenza Vaccination: Yes Hx Pneumococcal Vaccination: Yes Physical Exam - Physical Exam Appears: Well, Non-toxic, No Acute Distress Skin: Normal Color, Warm, Dry, No Rash Eye(s): bilateral: PERRL Nose: Normal, No Flaring Oral Mucosa: Moist, No Drooling Throat: Normal, No Erythema, No Exudate, No Drooling Neck: No Midline Cervical Tenderness, No Paracervical Tenderness, No Step Off Deformity, Supple Chest: Tenderness (reproducible over Left parasterla border.), No Ecchymosis, No Subcutaneous Emphysema Cardiovascular: Rhythm Regular, No Murmur, No JVD, Other ((-) carotid bruits B/L ) Respiratory: Normal Breath Sounds Gastrointestinal/Abdominal: Soft, No Tenderness, No Distention, No Guarding Back: No CVA Tenderness Extremity: No Pedal Edema, No Calf Tenderness (B/L), No Deformity, No Swelling Neurological/Psych: Oriented x3, Normal Speech, Normal Motor, Normal Sensation, Normal Reflexes ED Course And Treatment - Laboratory Results Result Diagrams: 12/14/16 14:35 12/14/16 14:35 Lab Interpretation: No Changes Compared To Prior Results ECG: Interpreted By Me, Viewed By Me ECG Rhythm: Sinus Rhythm ECG Interpretation: No Changes From Prior (10/27/16) Interpretation Of ECG: SR@79/min, NAD, no acute T wave or ST-T changes. O2 Sat by Pulse Oximetry: 96 Pulse Ox Interpretation: Normal - Radiology CXR: Interpreted by Me, Viewed By Me CXR Interpretation: Yes: Other - Other Rad CXR X-Ray: Read By Radiologist Interpretation: IMPRESSION: No focal consolidation, significant pleural effusion, or definite pneumothorax identified. Progress Note: On re-evaluation, pt appears comfortable, not in any apparent distress. AFebrile, hemodynamicaly stable. NOn-toxic. PusleOx 100% RA. Neck : Supple, (-) JVD, (-) carotid bruits. ENT: no acute findings. CVS: (+)S1S2, reg. (-) murmur. Lungs: CTA B/L, BS equal B/L. Abd: benign, (-) guarding, (-) rebound. Neuorlogicaly intact. Blood work review, Troponin, DDimer- negative. imaging review and appears without acute abnormalities. Pt has clinical findings c/w reprodicable Left sided chest wall pain and left shoulder pain. case discussed with ED attending and previous records from 10/27/16 review when pt had card. work up and no acute abnormalities found As per ED attending, pt is stable for discharge now and outpt f/u. results review with patient. Advised and ref. to F/u with PMD, Cardiology in 2-3 days for re-eval. return if any worsening or new changes. Disposition Counseled Patient/Family Regarding: Studies Performed, Diagnosis, Need For Followup, Rx Given - Disposition Referrals: [facility] [Outside] [facility] [Outside] Disposition: HOME/ ROUTINE Disposition Time: 16:06 Condition: STABLE Additional Instructions: LIGHT DUTY TO CHEST, PAIN IS LIKELY MUSCULAR TAKE PAIN MEDICATION PRESCRIBED NEED FOLLOW UP WITH PMD AND CARDIOLOGY IN 2-3 DAYS FOR RE-EVALUATION. RETURN TO ED IF ANY WORSENING OR NEW CHANGES. Prescriptions: Ibuprofen [Motrin Tab] 600 mg PO Q6 #20 tab Methocarbamol [Robaxin] 500 mg PO TID #14 tab Instructions: Chest Pain (ED) Forms: [email or web address] (Khmer) Print Language: PERSIAN - Clinical Impression Clinical Impression: Chest pain
[2016-12-14 16:28] VITALS: BP 134/77; PULSE 77; TEMP 97.7; O2SAT 97
== END 2016-12-14 16:25 | disposition home or self-care (01) ==
LOC: C.ER 13:23
DX: R07.9 Chest pain, unspecified (principal); E66.01 Morbid (severe) obesity due to excess calories
CPT/HCPCS: 71020; 80053; 81001; 83880; 84484; 85025; 85378; 85610; 85730; 96374; 99284; J1885; J7040

== ENCOUNTER 2017-03-18 01:37 | Emergency (ER) | payer OTHER ==
[2017-03-18 01:38] VITALS: BMI 46.7
[2017-03-18 01:50] VITALS: RESP 20
[2017-03-18] MEDS ORDERED: Sodium Chloride 0.9% Inh Soln (3mL) UD INH ONE (02:58)
--- NOTE | 2017-03-18 03:00 | C.PDOC ---
History Of Present Illness Morbidly obese 41 year old male with Hx of HTN presents to ED with complaints of diffuse myalgias that began 3 days ago. Associated symptoms; cough, sore throat, nasal congestion, and difficulty breathing secondary to stuffed nose. Patient denies fever, nausea, vomiting or diarrhea. Patient states he took percocet because it was all he had at home. Time Seen by Provider: 03/18/17 02:14 Chief Complaint (Nursing): Flu-like Symptoms History Per: Patient History/Exam Limitations: no limitations Onset/Duration Of Symptoms: Days (3) Current Symptoms Are (Timing): Still Present Location Of Pain: Diffuse Myalgias Sick Contacts (Context): None Associated Symptoms: Sore Throat, Cough, Myalgias, Nasal Congestion (secondary to stuffed nose). denies: Fever, Chills, Nausea, Vomiting, Diarrhea Ear Symptoms: Bilateral: None Recent travel outside of the [place]: No Past Medical History Reviewed: Historical Data, Nursing Documentation, Vital Signs Vital Signs: Last Vital Signs Temp 99.4 F 03/18/17 04:04 Pulse 92 H 03/18/17 04:04 Resp 20 03/18/17 04:04 BP 135/80 03/18/17 04:04 Pulse Ox 99 03/18/17 04:23 - Medical History PMH: Back Problems, Gall Bladder Disease, HTN, Pancreatitis Surgical History: Cholecystectomy Family History: States: No Known Family Hx - Social History Hx Alcohol Use: No Hx Substance Use: No - Immunization History Hx Tetanus Toxoid Vaccination: No Hx Influenza Vaccination: No Hx Pneumococcal Vaccination: No Review Of Systems Constitutional: Negative for: Fever, Chills ENT: Positive for: Nose Congestion (secondary to stuffed nose), Other (Sore throat) Respiratory: Positive for: Cough Gastrointestinal: Negative for: Nausea, Vomiting, Diarrhea Musculoskeletal: Positive for: Other (diffuse myalgias) Skin: Negative for: Rash Neurological: Negative for: Weakness, Numbness Psych: Negative for: Depression, Suicidal ideation Physical Exam - Physical Exam Appears: Non-toxic, Other (Awake and Alert; Appears uncomfortable) Skin: Warm, Dry Head: Normacephalic Eye(s): bilateral: Normal Inspection Ear(s): Bilateral: Normal Nose: Other (congested) Oral Mucosa: Moist Throat: Erythema (pharynx), Other (large tonsils) Neck: Supple Chest: Symmetrical, No Tenderness Cardiovascular: Other (tachycardic) Respiratory: Normal Breath Sounds (clear to auscultation bilaterally), No Rales , No Rhonchi, No Wheezing Gastrointestinal/Abdominal: No Soft, No Tenderness, No Distention Neurological/Psych: Oriented x3, Normal Speech, Normal Cognition ED Course And Treatment O2 Sat by Pulse Oximetry: 99 (Room air) Pulse Ox Interpretation: Normal Medical Decision Making Medical Decision Makin41 y/o obese male with flu like symptoms; check for flu. strep. give tylenol, saline neb and re-assess. 359 am pt feeling better after tylenol and nebulizer treatment. neg for flu and strep. d/c hoome with flonase. tylenol. Disposition Counseled Patient/Family Regarding: Studies Performed, Diagnosis, Need For Followup, Rx Given - Disposition Referrals: [facility] at [facility] [Outside] Disposition: HOME/ ROUTINE Disposition Time: 04:17 Condition: IMPROVED Additional Instructions: Por favor, tome Tylenol (no percocet) cada 6 horas para aliviar el dolor en la garganta y el cuerpo. James grgaras con agua salada tibia varias veces al da. Larisa ms bebidas calientes annie t con miel y limn, sopas. Use los dientes de garganta para ayudar con el dolor de garganta. Use Flonase (aerosol nasal) annie se indica para ayudar con la congestin. Primeros pasos con fraga mdico en 2-3 d as Please take Tylenol (not percocet) every 6 hours for pain in throat and body. Gargle with warm salty water several times a day. Drink increased hot drinks like tea with honey and lemon, soups. Use throat losenge to help with throat pain. Use Flonase (nasal spray) as directed to help with congestion. FOllow up with your doctor in 2-3 days. Prescriptions: Acetaminophen [Tylenol 325mg tab] 650 mg PO Q6 #30 tab Fluticasone Nasal [Flonase] 1 spr NS BID #1 bottle Instructions: Bronchiolitis (ED), Upper Respiratory Infection (ED) Forms: Gen Discharge Inst Tanzanian, [employer] (Tanzanian) Print Language: BENINESE - Clinical Impression Clinical Impression: Upper respiratory infection - PA / [employer] / Resident Statement MD/DO has reviewed & agrees with the documentation as recorded. - Scribe Statement The provider has reviewed the documentation as recorded by the Hola Alvarado All medical record entries made by the Elizabetibsatinder were at my direction and personally dictated by me. I have reviewed the chart and agree that the record accurately reflects my personal performance of the history, physical exam, medical decision making, and the department course for this patient. I have also personally directed, reviewed, and agree with the discharge instructions and disposition.
[2017-03-18 03:33] LABS: INFLUENZA A B NEGATIVE FOR FLU A/B (NEGATIVE)
[2017-03-18 04:05] VITALS: BP 135/80; PULSE 92; TEMP 99.4
[2017-03-18 04:11] VITALS: O2SAT 99
== END 2017-03-18 05:11 | disposition home or self-care (01) ==
LOC: C.ER 01:37
DX: J06.9 Acute upper respiratory infection, unspecified (principal)

== ENCOUNTER 2018-02-05 20:34 | Emergency (ER) | payer SELFPAY ==
[2018-02-05 20:36] VITALS: BMI 46.7
--- NOTE | 2018-02-05 21:04 | C.PDOC ---
History Of Present Illness 42 year old male with a Hx of HTN on metoprolol complaint with medication presents to the ER with a complaint SOB with exertion and lower leg swelling and redness since yesterday. Patient also reports having some lower back pain. Den ies chest pain, nausea, vomiting, incontinence, weakness, numbness or other complaints. Time Seen by Provider: 02/05/18 21:03 Chief Complaint (Nursing): Lower Extremity Problem/Injury History Per: Patient History/Exam Limitations: no limitations Onset/Duration Of Symptoms: Days (Yesterday) Current Symptoms Are (Timing): Still Present Recent travel outside of the [place]: No Past Medical History Reviewed: Historical Data, Nursing Documentation, Vital Signs - Medical History PMH: Back Problems, Gall Bladder Disease, HTN, Pancreatitis Surgical History: Cholecystectomy Family History: States: Unknown Family Hx - Social History Hx Alcohol Use: No Hx Substance Use: No - Immunization History Hx Tetanus Toxoid Vaccination: No Hx Influenza Vaccination: No Hx Pneumococcal Vaccination: No Review Of Systems Constitutional: Negative for: Fever, Chills Eyes: Negative for: Pain, Vision Change ENT: Negative for: Ear Pain Cardiovascular: Negative for: Chest Pain, Palpitations Respiratory: Positive for: SOB with Excertion. Negative for: Cough, Pleuritic Pain Gastrointestinal: Negative for: Nausea, Vomiting, Abdominal Pain Genitourinary: Negative for: Dysuria, Incontinence, Hematuria Musculoskeletal: Positive for: Other (Lower leg redness and swelling). Negative for: Neck Pain, Shoulder Pain, Back Pain, Hand Pain Neurological: Negative for: Weakness, Numbness Physical Exam - Physical Exam Appears: Well, Non-toxic, Other (Obese) Skin: Warm, Dry Head: Atraumatic, Normacephalic Eye(s): bilateral: Normal Inspection Nose: Normal Oral Mucosa: Moist Neck: Normal, No Midline Cervical Tenderness, No Paracervical Tenderness, Supple, Other (no meningeal signs) Chest: Symmetrical, No Tenderness Cardiovascular: Rhythm Regular Respiratory: Normal Breath Sounds, No Rales, No Rhonchi, No Wheezing Gastrointestinal/Abdominal: Soft, No Tenderness Back: No CVA Tenderness, No Vertebral Tenderness, No Paraspinal Tenderness Extremity: Normal ROM (x4), Capillary Refill (<2 seconds), Other (Lower extremity bilateral 3+ pitting edema with mild erythema up to ankles. mildly warmer, no crepitus, non ttp. Negative [place] ankle, Negative [place] foot) Pulses: Left Dorsalis Pedis: Normal, Right Dorsalis Pedis: Normal Neurological/Psych: Oriented x3, Normal Speech, Normal Motor, Normal Sensation Gait: Steady ED Course And Treatment - Laboratory Results Result Diagrams: 02/05/18 21:37 02/05/18 21:37 ECG: Interpreted By Me, Viewed By Me ECG Rhythm: Sinus Rhythm ECG Interpretation: Normal Interpretation Of ECG: No STEMI Rate From EC Medical Decision Making Medical Decision Makin yr old male w/ hx of HTN p/w CAMPOS, SOB and b/l LE edema. Mild erythema to b/l LE. mildly ttp, no streaking noted. ?PE given SOB. Pending imaging and labs CTA, EKG, and blood work ordered. EK, NSR, No stemi 2348 CTA w/ out PE. appreciate consult w/ James Yancey- fully endorsed to hospitalist: pt to f/u outpt in clinic lovenox given, pt to follow up tomorrow within 12 hrs for US here in ED: he is agreeable will also give abx for b/l LE swelling w/ low WBC. pt agreeable to plan Disposition - Disposition Disposition Time: 23:51 Condition: GOOD Forms: [employer] (Vincentian) - Clinical Impression Clinical Impression: Leg swelling, Rash - Scribe Statement The provider has reviewed the documentation as recorded by the Scribsatinder Oshea All medical record entries made by the Scribe were at my direction and per sonally dictated by me. I have reviewed the chart and agree that the record accurately reflects my personal performance of the history, physical exam, medical decision making, and the department course for this patient. I have also personally directed, reviewed, and agree with the discharge instructions and disposition.
[2018-02-05 21:41] LABS: BASO # 0.1 K/uL (0.0-0.2); BASO % 0.9 % (0.0-2.0); EOS # 0.2 K/uL (0.0-0.7); EOS % 1.8 % (0.0-4.0); LYMPH # 2.9 K/uL (1.0-4.3); LYMPH % 24.9 % (20.0-40.0); MEAN CELL VOLUME 83.6 fL (80.0-94.0); MEAN CORPUSCULAR HEMOGLOBIN 27.9 pg (27.0-31.0); MEAN CORPUSCULAR HGB CONC 33.4 g/dL (33.0-37.0); MEAN PLATELET VOLUME 7.8 fL (7.2-11.7); MONO # 0.7 K/uL (0.0-0.8); MONO % 6.3 % (0.0-10.0); NEUT # 7.6 K/uL (1.8-7.0); NEUT % 66.1 % (50.0-75.0); RBC 5.02 Mil/uL (4.40-5.90); RED CELL DISTRIBUTION WIDTH 14.4 % (11.5-14.5); WHITE BLOOD COUNT 11.5 K/uL (4.8-10.8)
[2018-02-05 21:55] LABS: ALB/GLOB RATIO 1.2 (1.0-2.1); ALBUMIN 4.1 g/dL (3.5-5.0); ALT/SGPT 62 U/L (21-72); AST/SGOT 40 U/L (17-59); BLOOD UREA NITROGEN 15 mg/dL (9-20); CALCIUM 8.9 mg/dl (8.6-10.4); GFR NON-AFRICAN AMERICAN > 60
[2018-02-05] MEDS ORDERED: Iohexol 300 100 ML IJ ONE (22:05)
[2018-02-05 22:07] LABS: B-TYPE NATRIURETIC PEPTIDE 33.4 pg/mL (0-450)
[2018-02-05 23:24] VITALS: BP 113/74; PULSE 93; RESP 18; TEMP 98.4; O2SAT 97
[2018-02-05] MEDS ORDERED: Enoxaparin 150 mg Syringe SC STA (23:46)
--- NOTE | 2018-02-06 10:33 | CT ---
Date of service: 02/05/2018 PROCEDURE: CT Chest with contrast (Pulmonary Angiogram) HISTORY: sob w/ exertion. tachy COMPARISON: None available. TECHNIQUE: Axial computed tomography images were obtained of the chest in the pulmonary arterial phase of enhancement. Coronal and sagittal reformatted images were created and reviewed. Intravenous contrast dose: 100 mL Omnipaque 300 Radiation dose: Total exam DLP = 538.86 mGy-cm. This CT exam was performed using one or more of the following dose reduction techniques: Automated exposure control, adjustment of the mA and/or kV according to patient size, and/or use of iterative reconstruction technique. FINDINGS: PULMONARY ARTERIES: Grossly technically limited examination. No large central pulmonary embolism in the main or lobar pulmonary arteries. Unable to adequately evaluate segmental and subsegmental pulmonary artery branches due to suboptimal timing of scan relative to intravenous contrast bolus. AORTA: No acute findings. No thoracic aortic aneurysm. No aortic atherosclerotic calcification or mural plaque present. LUNGS: Unremarkable. No nodule, mass or pulmonary consolidation. PLEURAL SPACES: Unremarkable. No effusion or pneumothorax. HEART: Unremarkable. No cardiomegaly. No significant pericardial effusion. LYMPH NODES: No lymphadenopathy. BONES, CHEST WALL: Unremarkable. No fracture or destructive lesion OTHER FINDINGS: Diffusely diminished attenuation of the liver consistent with fatty infiltration. IMPRESSION: Limited examination. Unable to exclude pulmonary artery embolism in the segmental or subsegmental pulmonary artery branches. No infiltrate. Fatty infiltration of the liver. The preliminary findings for this examination were reported by [facility] at 11:36 p.m. on 02/05/2018. There is discordance of this report with the preliminary findings. The examination is felt to be of low negative predictive value for pulmonary embolism due to the technical limitation described above. These findings were discussed by telephone with GERONIMO Vasquez, at 10:20 a.m. on 02/06/2018.
--- NOTE | 2018-02-06 23:35 | CARD ---
APPROVED REPORT Date of service: 02/05/2018 EKG Measurement Heart [id number] <Conclusion> Normal sinus rhythm Normal ECG
== END 2018-02-06 00:53 | disposition home or self-care (01) ==
LOC: C.ER 20:34
DX: M79.89 Other specified soft tissue disorders (principal); R21 Rash and other nonspecific skin eruption
CPT/HCPCS: 71275; 80053; 83735; 83880; 84484; 85025; 87040; 93005; 96372; 99285; J1650; Q9967

== ENCOUNTER 2018-05-07 13:23 | Emergency (ER) | payer MEDICAID, OTHER ==
[2018-05-07 13:23] VITALS: BMI 46.7
[2018-05-07 14:09] VITALS: RESP 16; TEMP 97.9
[2018-05-07] MEDS ORDERED: Oxycodone/Acetaminophen 5/325 mg Tab PO STA (17:13)
[2018-05-07] MEDS ORDERED: Lidocaine 5% Patch TD STA (17:13)
[2018-05-07] MEDS ORDERED: Lidocaine 5% Patch TD ONE (17:18)
[2018-05-07] MEDS ORDERED: Oxycodone/Acetaminophen 5/325 mg Tab ONE (17:18)
--- NOTE | 2018-05-07 17:23 | RAD ---
Date of service: 05/07/2018 PROCEDURE: Radiographs of the Lumbar Spine. HISTORY: Low back pain s/p fall COMPARISON: No prior. FINDINGS: BONES: Vertebral body heights are maintained. Normal lumbar lordosis maintained. DISC SPACES: Mild disc space narrowing L5-S1. OTHER FINDINGS: Surgical clips noted right upper quadrant, likely from prior cholecystectomy. IMPRESSION: No lumbar spine fracture or subluxation identified. Additional findings as above.
--- NOTE | 2018-05-07 17:25 | RAD ---
Date of service: 05/07/2018 PROCEDURE: Left Ankle Radiographs. HISTORY: Pain s/p fall today COMPARISON: None available. FINDINGS: BONES: No fracture identified. Postsurgical changes noted of the talus with surgical hardware. No evidence of hardware failure or loosening. Small Achilles calcaneal enthesophyte and plantar calcaneal spur. JOINTS: No dislocation seen. Bony articulations appear maintained. Ankle mortise maintained. SOFT TISSUES: Soft tissue swelling noted about the ankle, greatest medially. OTHER FINDINGS: None. IMPRESSION: No fracture or dislocation identified. Additional findings as above.
--- NOTE | 2018-05-07 17:27 | RAD ---
Date of service: 05/07/2018 PROCEDURE: Bilateral Knee Radiographs. HISTORY: Pain s/p fall on b/l knees today. COMPARISON: None. FINDINGS: BONES: No fracture identified. JOINTS: No dislocation seen. Bony articulations appear maintained. SOFT TISSUES: Unremarkable JOINT EFFUSION: No significant joint effusion. OTHER FINDINGS: None. IMPRESSION: No fracture or dislocation identified.
--- NOTE | 2018-05-07 17:34 | C.PDOC ---
History Of Present Illness Pt states that he tripped over a step and fell, landing on his hands and knees. Denies head injury or LOC. - HPI Time Seen by Provider: 05/07/18 13:46 Chief Complaint (Nursing): Trauma History Per: Patient, EMS Injury Occurred (Timing): Just Before Arrival Location Of Injury: Right: Knee, Left: Ankle, Knee, Anterior: Knee, Posterior: Back (Low) Severity: Moderate Additional History Per: Prior Records - Fall Fall:Prior To Injury: Tripped Past Medical History Reviewed: Historical Data, Nursing Documentation, Vital Signs Vital Signs: Last Vital Signs Temp 97.9 F 05/07/18 14:08 Pulse 99 H 05/07/18 14:08 Resp 16 05/07/18 14:08 BP 147/83 05/07/18 14:08 Pulse Ox 99 05/07/18 14:08 - Medical History PMH: Back Problems, HTN, Pancreatitis Surgical History: Cholecystectomy Family History: States: Unknown Family Hx - Social History Hx Alcohol Use: No Hx Substance Use: No - Immunization History Hx Tetanus Toxoid Vaccination: No Hx Influenza Vaccination: No Hx Pneumococcal Vaccination: No Review Of Systems Except As Marked, All Systems Reviewed And Found Negative. Constitutional: Negative for: Fever Cardiovascular: Negative for: Chest Pain Respiratory: Negative for: Shortness of Breath Gastrointestinal: Negative for: Abdominal Pain Musculoskeletal: Positive for: Back Pain (low). Negative for: Neck Pain, Shoulder Pain, Arm Pain, Hand Pain Neurological: Negative for: Weakness, Headache Physical Exam - Physical Exam Appears: Non-toxic, No Acute Distress Skin: Normal Color, Warm, Dry Head: Atraumatic, Normacephalic Eye(s): bilateral: PERRL, EOMI Neck: Normal ROM, No Midline Cervical Tenderness, No Step Off Deformity, Supple Chest: Symmetrical Cardiovascular: Rhythm Regular Respiratory: Normal Breath Sounds, No Accessory Muscle Use Gastrointestinal/Abdominal: Soft, No Tenderness Back: Paraspinal Tenderness (lumbar) Extremity: Tenderness (b/l anterior knees and left ankle), No Deformity Pulses: Left Dorsalis Pedis: Normal, Right Dorsalis Pedis: Normal Neurological/Psych: Oriented x3, Normal Motor ED Course And Treatment O2 Sat by Pulse Oximetry: 99 Pulse Ox Interpretation: Normal - Other Rad LS Spine x-rays X-Ray: Viewed By Me, Read By Radiologist Interpretation: IMPRESSION: No lumbar spine fracture or subluxation identified. Additional findings as above. b/l knee x-rays X-Ray: Viewed By Me, Read By Radiologist Interpretation: IMPRESSION: No fracture or dislocation identified. Left ankle x-rays X-Ray: Viewed By Me, Read By Radiologist Interpretation: IMPRESSION: No fracture or dislocation identified. Reassessment Condition: Improved Disposition Counseled Patient/Family Regarding: Studies Performed, Diagnosis, Need For Followup, Rx Given - Disposition Referrals: [facility] [Outside] Disposition: HOME/ ROUTINE Disposition Time: 18:01 Condition: STABLE Additional Instructions: Follow up in the clinic for further evaluation and treatment. Return to the ER if you develop weakness, trouble urinating, worsening of symptoms or if you have any other concerns. Prescriptions: Cyclobenzaprine [Cyclobenzaprine HCl] 10 mg PO TID PRN #15 tab PRN Reason: Muscle Spasm Naproxen [Naprosyn] 1 tab PO BID PRN #20 tab PRN Reason: Pain Instructions: Low Back Pain (DC), Knee Sprain (DC) Forms: [employer] (Northern Irish) Print Language: ENGLISH - Clinical Impression Clinical Impression: Fall, Low back pain, Knee contusion, Left ankle sprain
[2018-05-07 18:36] VITALS: BP 145/79; PULSE 82; O2SAT 98
== END 2018-05-07 18:34 | disposition home or self-care (01) ==
LOC: C.ER 13:23
DX: S93.402A Sprain of unspecified ligament of left ankle, initial encounter (principal); S80.02XA Contusion of left knee, initial encounter; S80.01XA Contusion of right knee, initial encounter; M54.5 Low back pain; W10.9XXA Fall (on) (from) unspecified stairs and steps, initial encounter
CPT/HCPCS: 72100; 73562; 73610; 96372; 99285; J1885